=== PATIENT | female | born 1960 | race Caucasian/White ===

== ENCOUNTER 2018-06-10 12:57 | Day surgery (SDC) | payer BC ==
[2018-06-10] MEDS ORDERED: LIDOCAINE 4% SOLUTION 50 ML BTL (14:22)
[2018-06-10] MEDS ORDERED: MIDAZOLAM 1 MG/ML 2 ML INJ (15:40)
[2018-06-10] MEDS ORDERED: FENTAnyl 50 MCG/ML VIAL (15:41)
== END 2018-06-10 20:07 | disposition home or self-care (01) ==
LOC: GIL 12:57
DX: K29.50 Unspecified chronic gastritis without bleeding (principal); K21.0 Gastro-esophageal reflux disease with esophagitis; D13.1 Benign neoplasm of stomach; K25.7 Chronic gastric ulcer without hemorrhage or perforation
CPT/HCPCS: 43239; 88305; 88312; 88313